=== PATIENT | male | born 1960 | race Caucasian/White ===

== ENCOUNTER → 2024-04-01 | Day surgery (SDC) | payer OTHER, SELFPAY ==
[~2024-04-01] MED LIST: FENTANYL CITR 100 MCG/2 ML ONE; KETOROLAC 30 MG/ML INJ ONE; LIDOCAINE 2% MPF 5 ML VIAL ONE; MIDAZOLAM HCL 2 MG/2 ML INJ ONE; NS 0.9% VIAL 20 ML ONE; ONDANSETRON 4 MG/2 ML VIAL ONE; dexAMETHasone 10 MG/ML VIAL ONE; propofoL 200 MG/20 ML VIAL IV ONE
[2024-04-01 09:01] LABS: Hematocrit 44.2 % (39.6-49.0); Hemoglobin 15.1 g/dL (13.6-17.9); MCV 93.7 fL (80-100); RBC Red Blood Cell Count 4.72 M/uL (4.33-5.43)
[2024-04-01 09:02] LABS: Absolute Basophils 0.1 K/uL (0-0.5); Absolute Eosinophils 0.3 K/uL (0-0.5); Absolute Lymphocytes (CBC) 1.8 K/uL (0.7-4.9); Absolute Monocytes 0.6 K/uL (0.1-1.3); Absolute Neutrophil 3.6 K/uL (1.8-8.0); Basophils % 1.2 % (0-1.3); Eosinophils % 5.3 % (0-4.4); Lymphocytes % 27.5 % (15.3-44.8); MCHC 34.2 g/dL (32.0-36.0); MPV 8.6 fL (7.6-11.3); Platelets 189 thou/uL (152-406)
[2024-04-01 09:11] LABS: Anion Gap 7.2 mEq/L (5.0-15.0); Potassium 4.2 mEq/L (3.5-5.1)
[2024-04-01] MEDS: Ringers Lactate 1,000 ML IV ONE (10:15)
[2024-04-01] MEDS: CEFAZOLIN SODIUM 1 GM/VIAL ONE (10:44)
[2024-04-01] MEDS: LIDOCAINE HCL/EPINEPHRINE 20 ML MDV ONE (10:44)
[2024-04-01] MEDS: CEFAZOLIN SODIUM 2 GM/VIAL ONE (11:43)
--- NOTE | 2024-04-01 12:22 | P.OP ---
Preoperative diagnosis: LEFT Shoulder Lipoma Postoperative diagnosis: LEFT Shoulder Lipoma Primary procedure: Excision of LEFT Shoulder Lipoma Anesthesia: GETA + Local Estimated blood loss: <5cc Specimen: 7.5cm x 5cm x 1cm LEFT Shoulder Lipoma Findings: LEFT Shoulder Lipoma Complications: None Transferred to: Recovery Room Condition: Good
[2024-04-01 14:16] VITALS: BP 159/60; O2SAT 100
[2024-04-01 14:19] VITALS: TEMP 97.6
--- NOTE | 2024-04-01 14:50 | OP ---
Date of Procedure: 04/01/2024 Surgeon: Damon Hall MD, Preoperative Diagnosis: Left shoulder lipoma. Postoperative Diagnosis: Left shoulder lipoma. Procedure: Excision of left shoulder lipoma. Anesthesia: General endotracheal plus local with 1% lidocaine with epinephrine. Estimated Blood Loss: Less than 5 cc. Specimen: 7.5 cm x 5 cm x 1 cm left shoulder lipoma extending down to the fascia overlying the muscl e. Findings: Left shoulder lipoma as described above. Complications: None. Disposition And Condition: The patient was transferred to recovery room in good condition. Procedure In Detail: After informed consent was obtained, the patient was brought to the operating r oom, prepped in the usual sterile fashion. After appropriately anesthetizing the skin, I then dissec damon circumferentially around the 7.5 x 5 cm x 1 cm lipomatous mass of the shoulder, which was connect ed to the fascia overlying the muscle. It was removed using predominant electrocautery and some blun t dissection. After this was removed and sent off for pathologic examination. The area was copiousl y irrigated. Deep dermal plane was reapproximated using interrupted 3-0 Vicryl sutures. Skin was cl osed with a 4-0 Monocryl in a running fashion. Dermabond was placed over top. The patient tolerated procedure without incident or complication, transferred to PACU in good condition. All counts were correct at the end of the case. TRUNG/KYRIE Voice ID: [id number] Report ID: [id number]
== END | disposition home or self-care (01) ==
LOC: OR 09:34
PROVIDERS: ATTEND Surgery
PROC: 0JBF0ZZ Excision of Left Upper Arm Subcutaneous Tissue and Fascia, Open Approach (ICD-10-PCS; principal; 2024-04-01 11:30)
DX: D17.21 Benign lipomatous neoplasm of skin and subcutaneous tissue of right arm (principal)
CPT/HCPCS: 36415; 80048; 85025; 88304; 93005; A4216; J0690; J1100; J2003; J2250; J2405; J2704; J3010; J7120